=== PATIENT | female | born 1965 | race Caucasian/White ===

== ENCOUNTER 2016-11-10 11:11 | Observation (INO) | payer OTHER ==
[2016-11-10 11:28] VITALS: BMI 30.4
[2016-11-10] MEDS ORDERED: Acetaminophen 325 MG TAB PO PRN (12:06)
[2016-11-10] MEDS ORDERED: Ondansetron ODT 4 MG TAB PO PRN (12:06)
[2016-11-10] MEDS ORDERED: Zolpidem Tartrate 5 MG TAB PO PRN (12:06)
[2016-11-10 12:08] LABS: CKMB 0.8 ng/mL (0-6.6); Troponin I Less than 0.010 ng/mL (< 0.028)
[2016-11-10] MEDS ORDERED: cloNIDine HCl 0.1 MG TAB PO PRN (12:10)
[2016-11-10 12:22] LABS: ALT (SGPT) 26 U/L (0-55); AST (SGOT) 30 U/L (5-34); Albumin 4.5 g/dL (3.5-5.0); Alkaline Phosphatase 72 U/L (40-150); Anion Gap 16 mmol/L (10-20); BUN (Urea Nitrogen) 17 mg/dL (9.8-20.1); Bilirubin, Total 0.9 mg/dL (0.2-1.2); Calc. Creatinine Clearance 83 mL/min (70-130); Calcium 10.1 mg/dL (7.8-10.44); Carbon Dioxide 28 mmol/L (22-29); Chloride 102 mmol/L (98-107); Estimated GFR-MDRD 64; Globulin 3.1 g/dL (2.4-3.5); Glucose 88 mg/dL (70-105); Potassium 3.9 mmol/L (3.5-5.1); Protein, Total 7.6 g/dL (6.0-8.3); Sodium 142 mmol/L (136-145)
[2016-11-10] MEDS ORDERED: Pantoprazole 40 MG VIAL IVP SCH (12:30)
[2016-11-10] MEDS ORDERED: Aspirin 325 MG TAB PO SCH (12:30)
[2016-11-10 12:32] LABS: #Basophils 0.1 thou/uL (0.0-0.2); #Eosinphils 0.1 thou/uL (0.0-0.7); #Lymphocytes 2.4 thou/uL (1.20-3.40); #Monocytes 0.5 thou/uL (0.11-0.59); #Neutrophils 3.7 thou/uL (1.40-6.50); %Basophils 1.6 % (0.0-1.0); %Lymphocytes 35.7 % (21.0-51.0); %Monocytes 7.1 % (0.0-10.0); %Neutrophils 54.6 % (42.0-75.0); Hemoglobin 13.1 g/dL (12.0-16.0); Mean Corpuscular HGB CONC 33.8 g/dL (32.0-36.0); Mean Corpuscular Hemoglobin 30.7 pg (27.0-31.0); Mean Corpuscular Volume 90.9 fl (81.0-99.0); Mean Platelet Volume 7.3 fL (7.4-10.4); Platelet Count 250 thou/uL (130-400); RBC Distribution Width 12.9 % (11.5-14.5); Red Blood Cell (RBC) Count 4.28 mill/uL (4.20-5.40); White Blood Cell (WBC) Count 6.8 thou/uL (4.8-10.8)
[2016-11-10] MEDS ORDERED: Nitroglycerin 0.4 MG TAB 1 EACH PO PRN (12:56)
--- NOTE | 2016-11-10 13:56 | RAD ---
2 VIEWS OF CHEST: Date: 11/10/16 COMPARISON: 06/21/15. HISTORY: Left-sided chest pain. FINDINGS: No pneumothorax, pleural fluid, focal consolidation, or alveolar edema. Heart and mediastinal contou rs within normal limits. No acute osseous abnormality. IMPRESSION: No acute findings. POS: [facility]
--- NOTE | 2016-11-10 13:59 | HP ---
DATE OF SERVICE: 11/10/2016 CHIEF COMPLAINT: Chest pain. HISTORY OF PRESENT ILLNESS: The patient is a 51-year-old female with a past medical history of hypertension, migraines and anxiety, who presented to the office this morning with left-sided chest pressure, diaphoresis, and palpitations. The patient states that she first thought it was indigestion, but she gets on a fairly regular basis and took 2 times this morning, but had no relief. The patient states that her symptoms would normally be relived by the chance if it was indigestion. The patient has a strong family history of heart disease in both her mother and her father. She denies nausea and radiating chest pain. She had an EKG in my office, which showed a normal sinus rhythm without significant ST changes and agreed to be placed in observation in [place] for chest pain rule out. PAST MEDICAL HISTORY: 1. Hypertension. 2. Hyperlipidemia. 3. Anxiety. 4. Migraines. PAST SURGICAL HISTORY: 1. Lap band. 2. . ALLERGIES: No known drug allergies. MEDICATIONS: Maxalt 10 mg 1 p.o. under the tongue at the onset of migraines. FAMILY HISTORY: Coronary artery disease in mother and father, hypertension in mother and lung cancer in father. SOCIAL HISTORY: The patient is . Denies tobacco or alcohol use. REVIEW OF SYSTEMS: General: Negative for fever and chills. Eyes: Negative for vision changes and eye pain. HEENT: Negative for sore throat, rhinorrhea and nasal congestion. Cardiovascular: Positive for chest pain, palpitations, diaphoresis. Negative for orthopnea and PND. Respiratory: Negative for shortness of breath, cough, wheezing. Gastrointestinal: Negative for nausea, vomiting, diarrhea or constipation. Genitourinary: Negative for dysuria or polyuria. Musculoskeletal: Negative for joint pain or swelling. Skin: Negative for rashes or jaundice. Neurologic: Negative for syncope and seizure. Psychiatric: Negative for depression. Positive for anxiety. PHYSICAL EXAMINATION: VITAL SIGNS: Weight 161 pounds, height 63 inches, temperature 98.6, pulse 66, respiration rate 20, O2 sat 100% on room air, blood pressure 172/96. GENERAL: The patient is awake, alert, and oriented, in no acute distress. EYES: Pupils are equal, round, and reactive to light and accommodation. Extraocular muscles intact. ENT: Oropharynx is without erythema or exudate. NECK: Supple without lymphadenopathy, thyromegaly or bruits. CARDIOVASCULAR: Regular rate and rhythm without murmurs, gallops, or rubs. LUNGS: Clear to auscultation bilaterally without wheezing or rhonchi. ABDOMEN: Soft, nontender, nondistended, with bowel sounds present. EXTREMITIES: There is no clubbing, cyanosis or edema. MUSCULOSKELETAL: The patient has full range of motion of all extremities with strength 5/5 throughout. NEUROLOGIC: Cranial nerves II through XII are grossly intact. Sensation is within normal limits. Deep tendon reflexes 2/4. PSYCHIATRIC: The patient displays an appropriate mood and affect. LABORATORY DATA: 1. CBC: WBC 6.8, hemoglobin 13.1, hematocrit 38.9, platelets 250. 2. CMP: Sodium 142, potassium 3.9, chloride 102, bicarbonate 28, BUN 17, creatinine 0.92, glucose 88, calcium 7.1, total bilirubin 0.9, AST 30, ALT 26, alkaline phosphatase 72, albumin 4.5, total protein 7.6. 3. Cardiac enzymes negative x1. IMAGING: EKG shows normal sinus rhythm without significant ST changes. ASSESSMENT AND PLAN: The patient is a 51-year-old female who presented with chest pain. 1. Chest pain, rule out myocardial infarction: The patient will be given nitroglycerin as needed for chest pain. She was placed on a beta-deric, statin and an aspirin. We will check cardiac enzymes q.3 hours x3 sets. We will repeat an EKG as well as obtain a chest x-ray. If any of her cardiac enzymes become positive, she may need to be transferred to the [facility] for further evaluation. 2. Hypertension: Patient will be started on a beta-deric as mentioned above. We will also provide clonidine as needed for an elevated blood pressure. 3. Anxiety: We will continue to monitor. The patient does not take any medication at home. We will also check a TSH. 4. Hyperlipidemia: Fasting lipid panel will be checked in the morning and a statin is being started. 5. Deep venous thrombosis prophylaxis with Lovenox. 6. Gastrointestinal prophylaxis with Protonix. MTDD
[2016-11-10 15:31] LABS: CKMB 0.8 ng/mL (0-6.6); Troponin I Less than 0.010 ng/mL (< 0.028)
[2016-11-10 18:20] LABS: CKMB 0.7 ng/mL (0-6.6); Troponin I Less than 0.010 ng/mL (< 0.028)
[2016-11-10] MEDS: Metoprolol Tartrate 25 MG TAB PO SCH (20:49)
[2016-11-10] MEDS ORDERED: Atorvastatin Calcium 20 MG TAB PO SCH (21:00)
[2016-11-11 05:17] LABS: #Basophils 0.1 thou/uL (0.0-0.2); #Eosinphils 0.2 thou/uL (0.0-0.7); #Monocytes 0.4 thou/uL (0.11-0.59); #Neutrophils 2.4 thou/uL (1.40-6.50); %Basophils 1.7 % (0.0-1.0); %Eosinophils 2.5 % (0.0-10.0); %Monocytes 6.7 % (0.0-10.0); %Neutrophils 40.1 % (42.0-75.0); Hemoglobin 11.7 g/dL (12.0-16.0); Mean Corpuscular HGB CONC 33.4 g/dL (32.0-36.0); Mean Corpuscular Hemoglobin 30.6 pg (27.0-31.0); Mean Corpuscular Volume 91.8 fl (81.0-99.0); Mean Platelet Volume 6.6 fL (7.4-10.4); Platelet Count 202 thou/uL (130-400); Red Blood Cell (RBC) Count 3.81 mill/uL (4.20-5.40)
[2016-11-11 05:37] LABS: Anion Gap 11 mmol/L (10-20); BUN (Urea Nitrogen) 13 mg/dL (9.8-20.1); Calc. Creatinine Clearance 89 mL/min (70-130); Carbon Dioxide 29 mmol/L (22-29); Cardiac Risk 3.3 (Less than 4.5); Chloride 107 mmol/L (98-107); Cholesterol 188 mg/dL (< 200 Desired); Estimated GFR-MDRD 70; Glucose 104 mg/dL (70-105); HDL Cholesterol 57 mg/dL (>60 Neg Risk); LDL Cholesterol, Calculated 112 mg/dL; Potassium 4.2 mmol/L (3.5-5.1); Sodium 143 mmol/L (136-145); Triglycerides 96 mg/dL (Less than 150)
[2016-11-11] MEDS ORDERED: Enoxaparin Sodium 40 MG/0.4 ML SYRINGE SC SCH (06:00)
[2016-11-11] MEDS: Metoprolol Tartrate 25 MG TAB PO SCH (08:38)
[2016-11-11] MEDS ORDERED: Aspirin 325 MG TAB PO SCH (09:00)
[2016-11-11] MEDS ORDERED: Pantoprazole 40 MG VIAL IVP SCH (09:00)
[2016-11-11 10:47] VITALS: BP 119/78; TEMP 98.3
--- NOTE | 2016-11-11 14:41 | DIS ---
DATE OF ADMISSION: 11/10/2016 DATE OF DISCHARGE: 11/11/2016 DISCHARGE DIAGNOSES: 1. Chest pain, resolved. 2. Anxiety. 3. Hypertension. HOSPITAL COURSE: The patient is a 51-year-old female who presented to my office with left -sided chest pain, palpitations, and diaphoresis. The patient was admitted to [facility] for observ ation to rule out SD. The patient had 3 sets of cardiac enzymes, which were negative. She was star pat on a beta-deric and given a dose of nitroglycerin, which did not change her chest pain much. Her chest pain was able to resolve overnight and her blood pressure came back to normal as well. Th e patient had labs this morning which showed, total cholesterol of 188, triglycerides 96, LDL 112 an d HDL 57. All other labs were within normal limits except for hemoglobin, which dropped from 13.1-1 1.7. This morning, the patient is free from chest pain and is wishing to go home. She will be disc harged and will follow up with me within a week and be set up for an outpatient stress test. DISCHARGE MEDICATIONS: Aspirin 81 mg p.o. daily. DISPOSITION: 1. The patient was discharged home in stable condition. 2. The patient will keep blood pressure log home and if her blood pressure readings are high, she w ill be started on blood pressure medication. 3. The patient will be set up for stress test as an outpatient. 4. The patient was advised to return for worsening chest pain.
== END 2016-11-11 10:45 | disposition home or self-care (01) ==
LOC: NAV ACUTE 11:11 → EEVIPCON 11:11
PROVIDERS: ADMIT Family Medicine; ATTEND Family Medicine
DX: R07.89 Other chest pain (principal); F41.9 Anxiety disorder, unspecified; I10 Essential (primary) hypertension; E78.5 Hyperlipidemia, unspecified; Z79.899 Other long term (current) drug therapy
CPT/HCPCS: 36415; 71020; 80048; 80053; 80061; 82553; 84443; 84484; 85025; 96372; 96374; 96376; A4216; C9113; G0378; J1650